=== PATIENT | female | born 1995 | race Two or more races ===

== ENCOUNTER 2018-12-02 19:35 | Emergency (ER) | payer OTHER ==
[~2018-12-02] VITALS: Ht 162.6 cm; Wt 49.9 kg
[~2018-12-02 19:35] MED LIST: IBUPROFEN600 MG ORAL
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
[2018-12-02 19:55] VITALS: BP 115/79
[2018-12-02] MEDS ORDERED: TYLENOL EXTRA500 MG ORAL (20:34)
[2018-12-02] MEDS ORDERED: LIDODERM700 M1 TOPIC (20:34)
[2018-12-02 20:44] VITALS: BP 115/79
--- NOTE | 2018-12-02 20:44 | NUR ---
ED Nurse Note: Pt cleared by ERMD for discharge. DC instructions/prescription was given and explained to pt and verbalized understanding of teachings. All medical deviecs such as ID band removed. Pt is AAO x4, ambulatory and left with all personal belongings.
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
== END 2018-12-02 20:44 | disposition home or self-care (01) ==
LOC: EMR 20:13
DX: M54.89 Other dorsalgia (principal); V43.52XA Car driver injured in collision with other type car in traffic accident, initial encounter; Y92.410 Unspecified street and highway as the place of occurrence of the external cause
CPT/HCPCS: 99282